=== PATIENT | male | born 1965 | race Caucasian/White ===

== ENCOUNTER 2017-12-19 06:26 | Day surgery (SDC) | payer OTHER, SELFPAY ==
[2017-12-19 07:03] VITALS: BP 150/99; PULSE 95; RESP 18; TEMP 36.7; O2SAT 100; BMI 26.4
--- NOTE | 2017-12-19 07:26 | PCM.HP.STD ---
Problem List (1) Screening for intestinal cancer Status: Acute History of Present Illness Date of Admission: 12/19/17 The patient is a 52 year old M screening for intestinal cancer. He has no direct family members who have colon polyps or colon cancer. He denies abdominal pain. He has not had any bright red blood per rectum or melena. He denies other significant chronic medical diseases. He has never had a previous colonoscopy Past Medical History Allergies SEASONAL ALLERGIES Allergy (Uncoded 12/13/17 14:43) Other Home Medications: Ambulatory Orders Medication Instructions Recorded Lovastatin [Mevacor] 40 mg PO QHS 12/14/17 Metoprolol Succinate [Toprol Xl] 50 mg PO DAILY 12/14/17 Sertraline HCl [Zoloft] 50 mg PO LUNCH 12/14/17 Sertraline HCl [Zoloft] 100 mg PO DAILY 12/14/17 Smoking Status: Never smoker Review of Systems Constitutional: Denies: Weight Change Eyes: Denies: Blurred vision, Vision Change HEENT: Denies: Ear Pain, Eye Pain Cardiovascular: Denies: Chest Pain, Claudication Respiratory: Denies: Cough, Shortness of Breath Gastrointestinal: Denies: Hematemesis, Hematochezia Genitourinary: Denies: Dysuria, Hematuria Musculoskeletal: Denies: Leg Pain Skin: Denies: Jaundice Neurological: Denies: Confusion Psychiatric: Denies: Depression Endocrine: Denies: Change in Body Habitus Hematologic/ Lymphatic: Denies: Easy Bleeding VTE Information - Inpt Only VTE Present on Admission: No Patient Problems: Active and Suspected Problems Screening for intestinal cancer (Acute) - Physical Exam General: Alert, Oriented x3, Cooperative, No apparent distress HEENT: Atraumatic Oral: Moist Mucosa Neck: Supple Lungs: Clear to auscultation Cardiovascular: Regular rate, Regular Rhythm Abdomen: Bowel Sounds Present, Soft, Non Tender Extremities: No clubbing Skin: No rashes Musculoskeletal: No Tenderness to Palpation of Joints or Extremities Lymphatic: No Cervical, Supraclavicular, or Inguinal Adenopathy Neurological: Cranial nerves II-XII grossly intact Psych/Mental Status: Normal Affect Vital Signs Temp Pulse Resp BP Pulse Ox 98.0 F 95 18 150/99 H 100 12/19/17 07:03 12/19/17 07:03 12/19/17 07:03 12/19/17 07:12/19/17 07:03 Oxygen Delivery Method Room Air Weight: 194 lb 10.691 oz Body Mass Index (BMI) 26.4 Assessment/Plan Active and Suspected Problems Screening for intestinal cancer (Acute) I am recommending the patient a screening colonoscopy with possible biopsy or polypectomy is indicated. He has had an opportunity to ask and have questions in. We will proceed at his discretion. Primary care physician is Dr. Abdirizak López M.D., F.A.C.S.
--- NOTE | 2017-12-19 07:47 | COLBX_PTH ---
PATIENT: ZENIA GUDINO LOC: EN U#:[id number] AGE/SX: 52/M ROOM: RE12/19/[address]: Dr. Stuart López MD : 1965 BED: DIS: 12/19/2017 SPEC #: [id number] RECD: 12/19/17 11:27 STATUS: RANDY JESUS #: [id number] ASHUTOSH: 12/19/17 07:[address]: Stuart López DEPT: SURGICAL PATHOLOGY RECD BY: Louis Robledo ENTERED: 12/19/17 11:57 SP TYPE: COLON BX OT DR: Dr. Micheal Reveles MD Tissues: Sigmoid colon biopsy Procedures: Surgery Specimen Level IV HEADER OPERATION: Colonoscopy with polypectomy PRE-OP DIAGNOSIS: Screening TISSUE SUBMITTED: Proximal sigmoid polyp MICROSCOPIC DIAGNOSIS Proximal sigmoid polyp, polypectomy: Fragments of tubulovillous adenoma. SJ:cata 12/20/17 MICROSCOPIC DESCRIPTION Slides are reviewed. GROSS DESCRIPTION Received in fixative is one container labeled with the patient's name and designated proximal sigmoid polyp. The specimen consists of three variable size pieces of clifford-pink polyp measuring 0.2 to 1 cm in greatest dimension. The largest piece is bisected. The entire specimen is submitted in one cassette. / SJ:rg 12/19/17 TC:1 CPT: 58029
--- NOTE | 2017-12-19 08:05 | PCM.OPRPT ---
Problem List (1) Screening for intestinal cancer Status: Acute Report of Operation Date of Procedure: 12/19/17 Pre-Operative Diagnosis: Screening for intestinal cancer Post-Operative Diagnosis: Long stalked polyp of the proximal sigmoid colon Surgery/Procedure Performed:: Colonoscopy with hot snare polypectomy Description of Surgical Findings:: Timeout and informed consent was obtained. 52-year-old gentleman was taken to the endoscopy suite. He was placed in a left lateral decubitus position. Throughout the procedure he received a total of 100 mg of Demerol and 5 mg of Versed as intravenous sedation. He also received a milligram of glucagon because of colonic spasm. Digital rectal exam performed. Normal anal tone. 2+ smooth prostate. The flexible colonoscope inserted the rectum and advanced to a tortuous sigmoid colon. It was somewhat challenging to appropriately insufflate the bowel. Appear to have a significant amount of spasm. The scope was carefully and tediously advanced to the splenic flexure and then nicely advanced to the transverse colon and with transabdominal pressure is advanced to the cecum. The cecum ileocecal valve was nicely achieved. Bowel prep was good. The scope was carefully withdrawn from the ascending transverse descending and sigmoid colon. The sigmoid colon was somewhat more difficult to visualize secondary to the colonic spasm. In the proximal sigmoid at 30 cm a long stalk polyp was encountered. A snare cautery was used to resect this. Cauterization was initially used and then the blend setting. I placed a hemostatic clip at the base. The polyp was retrieved with a Gillis net. The scope had to be inserted and we withdrawn through the sigmoid area to collect the polyp. There were no additional abnormalities of the sigmoid noted. The scope was retroflexed within the rectum anorectal verge inspected minimal hemorrhoidal findings. Excess fluid and air was aspirated free the procedure was completed with the patient tolerating it well. Impression Long stop polyp in the proximal sigmoid identified during screening colonoscopy. The patient will be notified of pathology. I anticipate a follow-up colonoscopy in 3 years. He has not had a previous colonoscopy. Cc: Dr. Reveles Medications were given at 0730. The procedure was started 0734. The cecum was reached at 0741.22. The procedure was completed at 0802. Stuart López M.D., F.A.C.S. Type of Anesthesia:: IV Sedation
--- NOTE | 2017-12-19 08:09 | OP.PCM_ITS ---
Problem List (1) Screening for intestinal cancer Status: Acute Report of Operation Date of Procedure: 12/19/17 Pre-Operative Diagnosis: Screening for intestinal cancer Post-Operative Diagnosis: Long stalked polyp of the proximal sigmoid colon Surgery/Procedure Performed:: Colonoscopy with hot snare polypectomy Description of Surgical Findings:: Timeout and informed consent was obtained. 52-year-old gentleman was taken to the endoscopy suite. He was placed in a left lateral decubitus position. Throughout the procedure he received a total of 100 mg of Demerol and 5 mg of Versed as intravenous sedation. He also received a milligram of glucagon because of colonic spasm. Digital rectal exam performed. Normal anal tone. 2 + smooth prostate. The flexible colonoscope inserted the rectum and advanced to a tortuous sigmoid colon. It was somewhat challenging to appropriately insufflate the bowel. Appear to have a significant amount of spasm. The scope was carefully and tediously advanced to the splenic flexure and then nicely advanced to the transverse colon and with transabdominal pressure is advanced to the cecum. The cecum ileocecal valve was nicely achieved. Bowel prep was good. The scope was carefully withdrawn from the ascending transverse descending and sigmoid colon. The sigmoid colon was somewhat more difficult to visualize secondary to the colonic spasm. In the proximal sigmoid at 30 cm a long stalk polyp was encountered. A snare cautery was used to resect this. Cauterization was initially used and then the blend setting. I placed a hemostatic clip at the base. The polyp was retrieved with a Gillis net. The scope had to be inserted and we withdrawn through the sigmoid area to collect the polyp. There were no additional abnormalities of the sigmoid noted. The scope was retroflexed within the rectum anorectal verge inspected minimal hemorrhoidal findings. Excess fluid and air was aspirated free the procedure was completed with the patient tolerating it well. Impression Long stop polyp in the proximal sigmoid identified during screening colonoscopy. The patient will be notified of pathology. I anticipate a follow- up colonoscopy in 3 years. He has not had a previous colonoscopy. Cc: Dr. Reveles Medications were given at 0730. The procedure was started 0734. The cecum was reached at 0741.22. The procedure was completed at 0802. Stuart López M.D., F.A.C.S. Type of Anesthesia:: IV Sedation
[2017-12-19 08:10] VITALS: BP 147/100; BP 150/99; PULSE 94; RESP 16; TEMP 37.2; O2SAT 99
[2017-12-19 08:15] VITALS: BP 142/86; BP 150/99; PULSE 81; RESP 16; O2SAT 97
[2017-12-19 08:20] VITALS: BP 139/86; BP 150/99; PULSE 80; RESP 16; O2SAT 95
[2017-12-19 08:25] VITALS: BP 143/88; BP 150/99; PULSE 81; RESP 16; TEMP 36.8; O2SAT 98
[2017-12-19 08:56] VITALS: BP 150/99
== END 2017-12-19 08:57 | disposition home or self-care (01) ==
LOC: EN 06:26 → AC 06:31
PROVIDERS: Family Provider Family Medicine; PCP Family Medicine; Visit Provider Surgery
PROC: 0DJD8ZZ Inspection of Lower Intestinal Tract, Via Natural or Artificial Opening Endoscopic (ICD-10-PCS; CPT 45378; principal; 2017-12-19 07:25)
DX: Z12.11 Encounter for screening for malignant neoplasm of colon (principal); D12.5 Benign neoplasm of sigmoid colon; Z79.899 Other long term (current) drug therapy
CPT/HCPCS: 45385; 88305; 99152; 99153; J7120; J1610

== ENCOUNTER 2019-03-15 06:48 | Day surgery (SDC) | payer OTHER, SELFPAY ==
[2019-03-15] VITALS (10 sets, daily range): BP systolic 123–154; BP diastolic 74–103; PULSE 63–80; RESP 16–18; TEMP 36.1–36.6; O2SAT 94–100; BMI 27.5
--- NOTE | 2019-03-15 07:15 | PCM.HP.STD ---
Problem List (1) Personal history of colonic polyps Status: Acute History of Present Illness Date of Admission: 03/15/19 The patient is a 53 year old M who has a personal history of colon polyp. On December 19, 2017 I performed the colonoscopy for him. There was a large long stalk polyp at the proximal sigmoid colon. This was removed with a snare and a hemostatic clip was placed. Because of the size and difficulty in complete visualization repeat colonoscopy recommended. He has not had any complaints today. He has not had any acute medical problems over the past year. He denies bright red blood per rectum or melena. Past Medical History Allergies tree and shrub pollen Allergy (Verified 03/15/19 07:10) Other SEASONAL ALLERGIES Allergy (Uncoded 03/15/19 07:10) Other Home Medications: Ambulatory Orders Medication Instructions Recorded Lovastatin [Mevacor] 40 mg PO QHS 12/14/17 Metoprolol Succinate [Toprol Xl] 50 mg PO DAILY 12/14/17 Sertraline HCl [Zoloft] 50 mg PO LUNCH 12/14/17 Sertraline HCl [Zoloft] 100 mg PO DAILY 12/14/17 Amlodipine Besylate 5 mg PO DAILY 03/13/19 Smoking Status: Never smoker Review of Systems Constitutional: Denies: Anorexia HEENT: Denies: Difficulty Swallowing Cardiovascular: Denies: Chest Pain Respiratory: Denies: Cough Gastrointestinal: Denies: Abdominal Pain, Nausea, Melena Endocrine: Denies: Change in Body Habitus VTE Information - Inpt Only VTE Present on Admission: No Patient Problems: Active and Suspected Problems Personal history of colonic polyps (Acute) - Physical Exam General: Alert, Oriented x3, Cooperative HEENT: Atraumatic Oral: Moist Mucosa Neck: Supple Lungs: Clear to auscultation, Normal air movement Cardiovascular: Regular rate, Regular Rhythm Abdomen: Bowel Sounds Present, Soft, Non Tender Extremities: No Calf Tenderness Psych/Mental Status: Normal Affect Assessment/Plan All Active Problems Screening for intestinal cancer (Acute) Personal history of colonic polyps (Acute) I recommended the patient a colonoscopy with possible biopsy or polypectomy is indicated. He is aware of the technique, benefits, risks, alternatives. He has had an opportunity to ask and have questions answered. He presents via our open access program today. We will proceed as noted. Stuart López M.D., F.A.C.S.
--- NOTE | 2019-03-15 07:49 | OP.ENDO_ITS ---
03/15/2019 Micheal Reveles Re : Colonoscopy procedure for Ab Hernandez Deajunie Reveles This procedure was performed on Friday, March 15, 2019. My impressions and recommendations are as follows: Impressions : - Non-thrombosed external hemorrhoids, non-thrombosed internal hemorrhoids and internal hemorrhoids that prolapse with straining, but spontaneously regress to the resting position (Grade II) found on digital rectal exam. - The entire examined colon is normal. - No specimens collected. Recommendations : - Discharge patient to home. - Resume previous diet. - Continue present medications. - Repeat colonoscopy in 5 years for surveillance. My findings are described in the full procedure note, which is enclosed. If I can be of further assistance, please feel free to contact me at Doctor phone number(s): Work: . Sincerely, Stuart López MD 03/15/2019 7:49:04 AM This report has been signed electronically.
== END 2019-03-15 08:42 | disposition hospice, home (50) ==
LOC: EN 06:50 → AC 06:52
PROVIDERS: Family Provider Family Medicine; PCP Family Medicine; Referring Provider Surgery; Visit Provider Surgery
PROC: 0DJD8ZZ Inspection of Lower Intestinal Tract, Via Natural or Artificial Opening Endoscopic (ICD-10-PCS; CPT 45378; principal; 2019-03-15 07:55)
DX: Z12.11 Encounter for screening for malignant neoplasm of colon (principal); K64.8 Other hemorrhoids; K64.4 Residual hemorrhoidal skin tags; Z79.899 Other long term (current) drug therapy; Z86.010 Personal history of colon polyps
CPT/HCPCS: 45378; 99152; 99153; J7120